=== PATIENT | female | born 1990 | race Caucasian/White ===

== ENCOUNTER 2017-07-05 15:51 | Emergency (ER) | payer MEDICAID ==
[2017-07-05 16:21] VITALS: BP 159/85
[2017-07-05] MEDS ORDERED: Ketorolac 30 MG/ML SDV IVPUSH ONE (17:03)
[2017-07-05] MEDS ORDERED: Sodium Chloride 0.9% 10 ML Syringe FLUSH PRN (17:03)
[2017-07-05] MEDS ORDERED: Tamsulosin 0.4 MG Cap.ER PO ONE (17:37)
--- NOTE | 2017-07-05 17:39 | EDM.PDOC ---
ED HPI GENERAL MEDICAL PROBLEM - General Chief Complaint: Flank Pain Stated Complaint: L/MIDDLE ADB PAIN Time Seen by Provider: 07/05/17 17:00 Source of Information: Reports: Patient History Limitations: Reports: No Limitations - History of Present Illness INITIAL COMMENTS - FREE TEXT/NARRATIVE: 27-year-old female with known kidney stones but no previous obstructive uropathy or renal colic presents with very sudden onset intense left-sided flank pain radiating around to the left groin. Nausea but no vomiting. No trauma. No dysuria. Onset: Sudden Duration: Hour(s): (1-1/2 hours ago) Right Flank Pain Score (Numeric/FACES): 8 - Related Data Allergies Allergy/AdvReac Type Severity Reaction Status Date / Time Penicillins Allergy Rash Verified 07/05/17 16:04 codeine AdvReac Nausea and Verified 07/06/17 10:43 Vomiting Home Meds: Home Meds NK [No Known Home Meds] 07/05/17 [History] Past Medical History Other HEENT History: cyst on throat Genitourinary History: Reports: UTI, Recurrent - Infectious Disease History Infectious Disease History: Reports: C-Difficile - Past Surgical History Female Surgical History: Reports: Section, Other (See Below) Other Female Surgeries/Procedures: Known kidney stone Social & Family History - Tobacco Use Smoking Status *Q: Current Some Day Smoker Years of Tobacco use: 5 Packs/Tins Daily: 0.2 Used Tobacco, but Quit: No Month Tobacco Last Used: 06/2014 Second Hand Smoke Exposure: No - Caffeine Use Caffeine Use: Reports: Coffee, Soda - Alcohol Use Days Per Week of Alcohol Use: 0 - Recreational Drug Use Recreational Drug Use: No ED ROS GENERAL - Review of Systems Review Of Systems: See Below Constitutional: Denies: Fever, Chills HEENT: Reports: No Symptoms Respiratory: Denies: Shortness of Breath Cardiovascular: Denies: Chest Pain GI/Abdominal: Reports: Abdominal Pain, Nausea. Denies: Vomiting : Reports: Flank Pain. Denies: Dysuria, Frequency, Urgency Skin: Reports: No Symptoms Neurological: Reports: No Symptoms ED EXAM, GENERAL - Physical Exam Exam: See Below Exam Limited By: No Limitations General Appearance: Alert, Moderate Distress Respiratory/Chest: No Respiratory Distress, Lungs Clear Cardiovascular: Regular Rate, Rhythm, Tachycardia GI/Abdominal: Non-Tender Back Exam: No: CVA Tenderness (R), CVA Tenderness (L) Neurological: Alert, Oriented Psychiatric: Anxious Skin Exam: Warm, Dry Course - Vital Signs Last Recorded V/S: Last Vital Signs Temp 98.9 F 07/05/17 16:13 Pulse 117 H 07/05/17 16:13 Resp 16 07/05/17 16:13 BP 159/85 H 07/05/17 16:13 Pulse Ox 97 07/05/17 16:13 - Orders/Labs/Meds Labs: Laboratory Tests 07/05/17 Range/Units 18:06 Urine Color Yellow Urine Appearance Turbid Urine pH 5.0 (4.5-8.0) Ur Specific [place] 1.020 (1.008-1.030) Urine Protein Negative (NEGATIVE) mg/dL Urine Glucose (UA) Normal (NEGATIVE) mg/dL Urine Ketones Negative (NEGATIVE) mg/dL Urine Occult Blood Large (NEGATIVE) Urine Nitrite Negative (NEGATIVE) Urine Bilirubin Negative (NEGATIVE) Urine Urobilinogen Normal (NORMAL) mg/dL Ur Leukocyte Esterase Large (NEGATIVE) Urine RBC 20-30 H (0-5) Urine WBC 20-30 H (0-5) Ur Epithelial Cells Moderate Amorphous Sediment Not seen Urine Bacteria Many Urine Mucus Not seen Meds: Medications Discontinued Medications Generic Name Dose Route Start Last Admin Trade Name Andrey PRN Reason Stop Dose Admin Ketorolac Tromethamine 30 mg 07/05/17 17:03 07/05/17 17:12 Toradol IVPUSH 07/05/17 17:04 30 mg ONETIME ONE Administration Sodium Chloride 10 ml 07/05/17 17:03 07/05/17 17:13 Saline Flush FLUSH 10 ml ASDIRECTED PRN Administration Keep Vein Open Tamsulosin HCl 0.4 mg 07/05/17 17:37 07/05/17 17:41 Flomax PO 07/05/17 17:38 0.4 mg ONETIME ONE Administration - Re-Assessments/Exams Free Text/Narrative Re-Assessment/Exam: 07/05/17 17:38 An IV was started, the patient was given 30 mg of Toradol IV and sent back for a abdomen and pelvis CT scan. By the time she returned from the scan she was feeling much better. 07/05/17 17:55 CT confirmed a proximal left ureteral stone with hydronephrosis. Her pain was almost gone by discharge. She was given a copy of her CT report, 20 additional Toradol doses to take one every 6-8 hours, her first dose of oral Flomax and a prescription for 10 additional doses. The plan is pain control and daily Flomax , and if her pain worsens she needs to return or go directly to [facility] or [place] where there is nephrology services. A UA did show bacteria and WBCs despite no urinary symptoms other than her renal colic, so a culture was initiated and she'll be covered with Cipro 500 3 times a day for the next 3 days. Departure - Departure Time of Disposition: 18:33 Disposition: Home, Self-Care 01 Condition: Good Clinical Impression: Ureteric colic, Left nephrolithiasis - Discharge Information Instructions: Kidney Stones, [id number] Referrals: PCP,None [Primary Care Provider] - Forms: ED Department Discharge Care Plan Goals: Take 1 ketorolac every 6-8 hours for pain, one daily Flomax starting tomorrow, and return if pain is uncontrolled with the medications. Consider rechecking with urology in 5-6 days if not pain-free. Take ciprofloxacin twice a day for 3 days. Return if worsening.
== END 2017-07-05 18:33 | disposition home or self-care (01) ==
LOC: JP.ED 15:51
DX: N13.2 Hydronephrosis with renal and ureteral calculous obstruction (principal); F17.210 Nicotine dependence, cigarettes, uncomplicated; Z88.0 Allergy status to penicillin; Z88.5 Allergy status to narcotic agent
CPT/HCPCS: 74176; 81001; 87086; 96374; 99284; A9270; J1885; J7050; 87088; 87186

== ENCOUNTER 2022-02-01 04:27 | Emergency (ER) | payer MEDICAID ==
[2022-02-01] MEDS ORDERED: Ketorolac 30 MG/ML SDV IVPUSH ONE (04:44)
[2022-02-01 05:05] VITALS: BP 135/84; PULSE 85
== END 2022-02-01 06:36 | disposition home or self-care (01) ==
LOC: JP.ED 04:27
DX: N13.2 Hydronephrosis with renal and ureteral calculous obstruction (principal); Z88.0 Allergy status to penicillin; Z88.5 Allergy status to narcotic agent; Z79.899 Other long term (current) drug therapy
CPT/HCPCS: 74176; 96374; 99284; J1885

== ENCOUNTER 2022-02-01 18:17 | Emergency (ER) | payer MEDICAID ==
[2022-02-01] MEDS ORDERED: Acetaminophen 325 MG Tab PO ONE (18:41)
[2022-02-01] MEDS ORDERED: Ondansetron 4 MG/2 ML SDV IVPUSH ONE (18:44)
[2022-02-01] MEDS ORDERED: Lactated Ringers 1,000 ML IV SCH (18:45)
[2022-02-01] MEDS ORDERED: Levofloxacin/Dextrose 5%-Water 750 MG in Premix Bag 1 BAG IV SCH (18:45)
[2022-02-01 19:10] LABS: ESTIMATED GFR 38 mL/min (>60)
[2022-02-01] MEDS ORDERED: Lactated Ringers 1,000 ML IV ONE ×2 (19:26→20:45)
[2022-02-01] MEDS ORDERED: HYDROmorphone 1 MG/ML Syringe IVPUSH ONE (19:27)
[2022-02-01] MEDS ORDERED: Ketorolac 30 MG/ML SDV IVPUSH ONE (19:42)
[2022-02-01] MEDS ORDERED: Ketorolac 30 MG/ML SDV ONE (19:44)
[2022-02-01 20:36] VITALS: BP 113/46; PULSE 140
== END 2022-02-01 20:55 ==
LOC: JP.ED 18:17
DX: A41.9 Sepsis, unspecified organism (principal); R65.21 Severe sepsis with septic shock; N39.0 Urinary tract infection, site not specified; Z88.0 Allergy status to penicillin; Z88.5 Allergy status to narcotic agent; Z79.899 Other long term (current) drug therapy; Z20.822 Contact with and (suspected) exposure to COVID-19
CPT/HCPCS: 36415; 80053; 83605; 84145; 85025; 86140; 87040; 87635; 96365; 96375; 99285; A9270; J1885; J1956; J2405; J7120; 74176; 87077; 87186; 96374; 99284-25; U0002

== ENCOUNTER 2023-04-08 16:39 | Emergency (ER) | payer MEDICAID ==
[2023-04-08 17:34] VITALS: BP 139/102; PULSE 125
== END 2023-04-08 18:15 | disposition home or self-care (01) ==
LOC: JP.ED 16:39
DX: J02.9 Acute pharyngitis, unspecified (principal); K12.0 Recurrent oral aphthae; Z88.5 Allergy status to narcotic agent; Z88.0 Allergy status to penicillin
CPT/HCPCS: 87070; 99283